=== PATIENT | female | born 1980 | race Caucasian/White ===

== ENCOUNTER 2017-07-06 00:20 | Emergency (ER) | payer BC ==
[~2017-07-06] VITALS: Ht 165.1 cm; Wt 72.7 kg
[~2017-07-06 00:20] MED LIST: LEVSIN 0.10.125 MG/T PO; VESICARE 5MG5 MG PO
[2017-07-06 00:33] VITALS: TEMP 98.1
[2017-07-06 01:40] VITALS: BP 121/70; PULSE 88
== END 2017-07-06 01:45 | disposition home or self-care (01) ==
LOC: COL.ER 00:20
DX: S01.81XA Laceration without foreign body of other part of head, initial encounter (principal); W18.39XA Other fall on same level, initial encounter

== ENCOUNTER 2017-07-10 07:50 | Emergency (ER) | payer BC ==
[2017-07-10 07:55] VITALS: BP 124/74; PULSE 74; TEMP 98.1
== END 2017-07-10 07:59 | disposition home or self-care (01) ==
LOC: COL.ER 07:50
DX: S01.81XD Laceration without foreign body of other part of head, subsequent encounter (principal); X58.XXXD Exposure to other specified factors, subsequent encounter

== ENCOUNTER → 2019-11-03 | Outpatient (CLI) | payer BC | LOC: COL.RAD 07:29 | DX: R10.13 Epigastric pain (principal) ==

== ENCOUNTER → 2020-03-23 | Outpatient (CLI) | payer BC, OTHER ==
[~2020-03-23] MED LIST changes: +COLACE 100100 MG/CAP PO; +IBU600 MG PO; +PERCOCET 325 MG1 TA2 PO
== END ==
LOC: ZCOL.LAB
DX: Z20.828 Contact with and (suspected) exposure to other viral communicable diseases (principal)

== ENCOUNTER 2020-03-29 05:40 | Inpatient (IN) | payer BC, OTHER ==
[2020-03-29] VITALS (19 sets, daily range): BP systolic 101–134; BP diastolic 48–89; PULSE 65–99; TEMP 97.4–97.7
[~2020-03-29] VITALS: Ht 165.1 cm; Wt 99.5 kg
[~2020-03-29 05:40] MED LIST changes: -COLACE 100100 MG/CAP PO; -IBU600 MG PO; -PERCOCET 325 MG1 TA2 PO
--- NOTE | 2020-03-29 05:50 | NUR ---
0550 ADMITTED TO [facility] FOR REPEAT C/SECT. EFM ON AND PERMITS SIGNED.
[2020-03-29] MEDS ORDERED: COLACE 100100 MG/CAP PO (06:30)
[2020-03-29 06:46] LABS: BASO % 0.3 % (0.0-2.0); EOS # 0.1 (0.0-0.7); EOS % 0.7 % (0-4.0); GRAN # 9.5 (1.4-6.5); GRAN % 74.6 % (42.2-75.2); HEMATOCRIT 31.6 % (37.0-47.0); LYMPH % 15.5 % (20.0-51.0); MEAN CELL VOLUME 92 fl (80.0-100.0); MEAN CORPUSCULAR HEMOGLOBIN 32 pg (27.0-31.0); MEAN CORPUSCULAR HGB CONC 35 g/dl (33.0-37.0); MEAN PLATELET VOLUME 10.5 fl (7.4-10.4); MONO # 1.1 (0.1-0.6); MONO % 8.4 % (1.7-9.3); PLATELET COUNT 206 K/mm3 (130-400); RED BLOOD COUNT 3.45 M/mm3 (4.10-5.30); REDCELL DISTRIBUTION WIDTH-CV 12.7 % (11.5-14.5)
--- NOTE | 2020-03-29 06:47 | NUR ---
PT HERE FOR REPEAT . FHT'S FOUND IN THE 130'S WITH MODERATE VARIABILITY AND ACCELS. PLAN OF CARE REVIEWED WITH PT AND SPOUSE. IV STARTED IN LEFT HAND WITH LR INFUSING WITHOUT DIFFICULTY. CONSENTS SIGNED. ASSESSMENT COMPLETE.
--- NOTE | 2020-03-29 08:50 | NUR ---
PT ADMITTED TO PACU AFTER DELIVERY OF INFANT VIA BY DR HART AND DR LAFLEUR. PT AWAKE AND ALERT. REPORTS NO PAIN AT THIS TIME. ASSESSMENT COMPLETED WITH NO ABNORMALITIES NOTED.
--- NOTE | 2020-03-29 09:30 | NUR ---
PT TO ROOM AFTER DISCHARGE FROM PACU. ORIENTED TO PLAN OF CARE. FUNDUS FIRM WITH MINIMAL BLEEDING
--- NOTE | 2020-03-29 14:30 | NUR ---
Pt up to bathroom with assist. Graf catheter removed. Pericare instructions given and new gown and underwear in place. Pt ambulates in hallway and then back to bed. Tolerated very well.
[2020-03-30 00:01] VITALS: BP 109/62; PULSE 64; TEMP 97.8
[2020-03-30 04:22] VITALS: BP 100/42; PULSE 66; TEMP 97.7
[2020-03-30 07:18] LABS: HEMOGLOBIN 10.9 g/dl (12.5-16.0)
[2020-03-30 07:20] LABS: HEMATOCRIT 31.7 % (37.0-47.0)
[2020-03-30 08:00] VITALS: BP 112/56; PULSE 68; TEMP 97.7
[2020-03-30] MEDS ORDERED: PERCOCET 325 MG1 TA2 PO (08:40)
[2020-03-30] MEDS ORDERED: IBU600 MG PO (08:40)
--- NOTE | 2020-03-30 09:09 | NUR ---
Initial visit; Parents thanked Mathematical Engineer for offering congratulations and God's blessings for the of their daughter. Mathematical Engineer thanked family for choosing [facility].
[2020-03-30 14:00] VITALS: BP 111/53; PULSE 66
[2020-03-30 16:28] VITALS: BP 120/62; PULSE 64; TEMP 97.7
[2020-03-30 22:45] VITALS: BP 121/62; PULSE 68; TEMP 97.6
[2020-03-31 07:10] VITALS: BP 110/50; PULSE 68; TEMP 97.3
== END 2020-03-31 15:15 | disposition home or self-care (01) | DRG 788 ==
LOC: OB 05:40
PROVIDERS: ADMIT Obstetrics & Gynecology
PROC: 10D00Z1 Extraction of Products of Conception, Low, Open Approach (ICD-10-PCS; principal; 2020-03-29)
DX: O34.211 Maternal care for low transverse scar from previous cesarean delivery (principal); O99.62 Diseases of the digestive system complicating childbirth; K58.9 Irritable bowel syndrome, unspecified; O99.214 Obesity complicating childbirth; Z3A.39 39 weeks gestation of pregnancy; Z37.0 Single live birth
CPT/HCPCS: J0690; J1885; J2175; J2370; J2405; J2590; J3010; J7120

== ENCOUNTER → 2020-04-26 | Outpatient (CLI) | payer BC, OTHER ==
[~2020-04-26] MED LIST changes: +COLACE 100100 MG/CAP PO; +IBU600 MG PO; +PERCOCET 325 MG1 TA2 PO
--- NOTE | 2020-04-26 14:30 | NUR ---
Pt, Fifi Tinoco, presents for outpatient consult with one month old baby girl, Marisela De Souza, for a evaluation as Marisela was below weight at her one month [address]. Morel. Marisela was born on [birth year] and weighed 7#4.8oz (3310 gms). Pt reports she weighed 6#9oz at her one week appt and then 6#14oz one day ago at Dr. Morel's office. Pt was advised by Dr. Morel to alternate with bottle feeding, suplementing after , and pumping. Pt reports she has folloed this plan, providing 1-2oz by bottle p BF, and 3oz at alternate feeds. Today Marisela weighs 7#4.1oz (3292 gms). Pt has been using a nipple shield for most breastfeedings, but we were able to get her to nurse for a short time without the shield on the right side, she finishes that side with the shield and then nurses the left with the sheild. Intake after was 1oz (30 gms). Marisela is then fed by bottle, 1oz EBM and 2oz formula. LC helps with bottle feeding while pt pumps. With chin support Marisela is more effective with the bottle feeding, than what pt observes at home; instructed on chin support. Pt collects a little over 1oz while pumping here. She reports generally pumping about 2oz, sometimes 3oz. POC: Continue feeding plan as over the last 24 hours, trying to pump after breastfeedings as well as at the bottle feedings. Herbal supplements recommended as well. F/U: Marisela has a weight check scheduled with Dr. Morel next week, pt to call this LC for update of weight and milk supply, consult pending milk supply increaseing. Questions invited and answered.
== END ==
LOC: LAC 09:04
DX: Z39.1 Encounter for care and examination of lactating mother (principal); Z71.89 Other specified counseling

== ENCOUNTER → 2020-05-12 | Outpatient (CLI) | payer BC, OTHER ==
--- NOTE | 2020-05-12 13:51 | NUR ---
Pt, Fifi De Souza, presents for follow up consult with 6 week old baby girl, Marisela De Souza, to determine if Marisela is tranfering more milk while . Marisela was born on 03/29/2018 and weighed 7#4.8oz. At our consult on 04/26/20 she weighed 7#4.1oz. Today Marisela weighs 8#7oz. Marisela has primarily been bottle fed with EBM and formula. Pt states she has had her a bresat a few time each day but finds it difficult to follow the 3-step feeding plan of breast/bottle/pump at each feeding. Pt reports Marisela is drinking an average of 3oz per feeding by bottle, pt is able to pump 4-5 times per 24 hours and collects 1-2.5oz. Today Marisela breastfeeds bilaterally with the nipple shield and has a weight gain of 1.6oz (46 gms) after. Pt then provides her 3oz formula by bottle. LC and pt discuss feeding options. LC suggests pt try a 3 day challenge of pumping regularly (7-8 times per 24 hours) for 3 days to see if milk supply increased. During this time, bringing baby to breast is optional. Pt expresses uncertainty of how long she will continue /pumping in general and may try this challenge to help her determine what her potential for milk production may be. Also discussed options for cotinuation of current feeding methods, or weaning if she desires. Pt reassured even a small amount of milk helps with the immunity. POC: Pt will continue pumping and feeding, may try pumping more times per day to evaluate milk production. F/U: as scheduled with Dr. Morel. Pt will contact this LC if she feels another consult will be beneficial. Questions invited and answered.
== END ==
LOC: LAC 05-10 14:57
DX: Z39.1 Encounter for care and examination of lactating mother (principal); Z71.89 Other specified counseling